=== PATIENT | male | born 1965 | race African-American/Black ===

== ENCOUNTER 2020-12-02 13:31 | Emergency (ER) | payer OTHER ==
[~2020-12-02] VITALS: Ht 172.7 cm; Wt 74.8 kg
[~2020-12-02 13:31] MED LIST: ALBU0.099; GABA-560; LANS30EC3 PO
[2020-12-02 13:43] VITALS: BP 148/80
[2020-12-02] MEDS ORDERED: HYDROcodone/APAP 5/325 MG 1 TAB TAB PO ONE (14:15)
[2020-12-02] MEDS ORDERED: cephALEXin 500 MG CAP PO ONE ×2 (15:15→15:25)
[2020-12-02] MEDS ORDERED: LIDOCAINE MPF 1% 10 MG/ML VIAL INJ ONE ×2 (15:15→15:25)
[2020-12-02] MEDS ORDERED: BACITRACIN OINT 500 UNITS/GM PKT TP ONE ×2 (15:24→15:25)
[2020-12-02] MEDS ORDERED: cephALEXin 500 MG CAP ONE (15:25)
[2020-12-02] MEDS ORDERED: LIDOCAINE MPF 1% 5 ML ONE (15:26)
[2020-12-02 16:18] VITALS: BP 143/75
== END 2020-12-02 16:19 | disposition home or self-care (01) ==
LOC: MED 13:31
DX: S62.603A Fracture of unspecified phalanx of left middle finger, initial encounter for closed fracture (principal); J45.909 Unspecified asthma, uncomplicated; K21.9 Gastro-esophageal reflux disease without esophagitis; Z88.5 Allergy status to narcotic agent; Z88.1 Allergy status to other antibiotic agents; X58.XXXA Exposure to other specified factors, initial encounter; Y93.9 Activity, unspecified; Y92.89 Other specified places as the place of occurrence of the external cause; Y99.8 Other external cause status
CPT/HCPCS: 12001; 73130; 90471; 90715; 99283; J2001

== ENCOUNTER 2020-12-09 15:57 | Emergency (ER) | payer OTHER ==
[~2020-12-09] VITALS: Ht 172.7 cm; Wt 77.1 kg
[2020-12-09 16:06] VITALS: BP 140/70
--- NOTE | 2020-12-09 16:28 | NUR ---
55 YEAR OLD MALE PRESENTED TO ER FOR INSTRUCTED FOLLOW UP 1 WEEK AFTER INJURING MIDDLE FINGER ON LEFT HAND. STITCHES PRESENT, CONTROLLED BLEEDING, NO DISCHARGE, NO ODOR, NO SWELLING, SURROUNDING SKIN INTACT, NORMAL COLOR, PAIN 02/15. AO4, BREATHING EVEN AND UNLABORED, SKIN WARM AND DRY. BED IN LOWEST POSITION, LOCKED, X1 SIDERAIL UP. PMH - ASTHMA ALLERGY - AZITHROMYCIN
--- NOTE | 2020-12-09 16:42 | NUR ---
Patient discharged with v/s stable. Splint applied to left third digit. Pt instructed to keep splint on x3 weeks. Written and verbal after care instructions given and explained. Patient verbalized understanding. Ambulatory with steady gait. All questions addressed prior to discharge.
[2020-12-09 16:45] VITALS: BP 140/70
== END 2020-12-09 16:42 | disposition home or self-care (01) ==
LOC: MED 15:57
DX: S62.603G Fracture of unspecified phalanx of left middle finger, subsequent encounter for fracture with delayed healing (principal); J45.909 Unspecified asthma, uncomplicated; K21.9 Gastro-esophageal reflux disease without esophagitis; Z48.00 Encounter for change or removal of nonsurgical wound dressing; Z88.5 Allergy status to narcotic agent; Z88.1 Allergy status to other antibiotic agents; Z79.899 Other long term (current) drug therapy; X58.XXXD Exposure to other specified factors, subsequent encounter
CPT/HCPCS: 99281